=== PATIENT | male | born 1970 | race Caucasian/White ===

== ENCOUNTER 2017-05-11 04:27 | Emergency (ER) | payer OTHER ==
[~2017-05-11] VITALS: Ht 182.9 cm; Wt 90.7 kg
[2017-05-11] MEDS ORDERED: IPRATRPIUM/ALBUTEROL 0.5/2.5MG 3 ML NEBU. ONE (04:37)
[2017-05-11] MEDS ORDERED: PRED20TA PO (04:55)
[2017-05-11] MEDS ORDERED: ALBU1.25 NEB (04:55)
--- NOTE | 2017-05-11 04:58 | PHYS DOC ---
General Chief Complaint: MULTIPLE COMPLAINTS Stated Complaint: HIP PAIN ASTHMA ATTACK Time Seen by MD: 04:30 Source: patient Exam Limitations: no limitations Problems: History of Present Illness Initial Comments Patient is a 46-year-old male who comes to the ED complaining of asthma attack and hip pain. Patient states he moved here from [place] in September, states he has not established with a doctor since moving here. 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 Patient has a nebulizer machine at home, states when his symptoms are like this he can usually get a breathing treatment which will help. He has no medications at home therefore he has come here for evaluation. He denies fever chills sweats or body aches cough is productive with whitish sputum. Symptoms are consistent with prior asthma attacks. Patient still smokes cigarettes heavily. Patient also complains of left hip pain. While talking patient pushes on his left buttock and then cries out in pain. He denies any trauma or recent exacerbating activities. He says that he rolls over on his hip and it wakes him up at night. No numbness tingling weakness or radiating symptoms. No pre- arrival treatment. ED vital signs are stable Timing/Duration: other Severity: mild Modifying Factors: improves with medication, worse with movement, improves with rest Associated Symptoms: cough, shortness of breath, other Allergies: Coded Allergies: No Known Drug Allergies (Unverified , 05/11/17) Past Medical History Medical History: arthritis, asthma Surgical History: noncontributory Social History Smoker: cigarettes Alcohol: none Drugs: none Review of Systems Constitutional: denies chills, denies diaphoresis, denies fever Respiratory: see HPI Cardiovascular: denies chest pain, denies palpitations, denies syncope Gastrointestinal: denies diarrhea, denies nausea, denies vomiting Musculoskeletal: see HPI, denies back pain, joint pain, denies joint swelling, muscle pain, denies neck pain Psychiatric/Neurological: denies headache, denies numbness, denies paresthesia Hematologic/Lymphatic: denies blood clots, denies easy bleeding, denies easy bruising Physical Exam General Appearance: no apparent distress (disheveled, smells like smoke) Eyes: bilateral eye normal inspection, bilateral eye PERRL, bilateral eye EOMI Ear, Nose, Throat: hearing grossly normal, normal ENT inspection, normal pharynx Neck: non-tender, supple Respiratory: chest non-tender, decreased breath sounds (globally with fair to good air movement no respiratory distress) Cardiovascular: normal peripheral pulses, regular rate, rhythm Back: no CVA tenderness, no vertebral tenderness Extremities: normal range of motion, no pedal edema, no calf tenderness, pelvis stable, other (tenderness at the lateral left gluteus muscle) 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 I discussed [id number] medications smoking cessation establishment with PCP nebulizer treatments and prednisone. Prednisone should be effective in a heating patient's respiratory symptoms and chronic inflammatory left hip complaint. Signs and symptoms to monitor as well as urgent indications to return to the department discussed the patient's questions were answered to his satisfaction and he expressed agreement and understanding with the treatment plan Departure Time of Disposition: 04:56 Disposition: 01 HOME, SELF-CARE Diagnosis: COPD/asthma exacerbation, tobaccoism, chronic left Condition: GOOD Patient Instructions: Smoking Cessation, Tips For Success Additional Instructions: Stop smoking seek medical assistance if necessary. Drink plenty of fluids to avoid dehydration. [id number] Tylenol as needed. Heating pad to left hip 20 minutes 4-6 times daily followed by gentle stretching. Prescription: Prednisone, albuterol nebulizer You will need to establish with and follow with a local primary care doctor. ED staff can give you names of local doctors who take walk-in patients. Follow-up with a doctor on Wednesday for recheck. As discussed may consider physical therapy for further treatment of left buttock pain. Return to ED with new or changing symptoms. DANICA MCGUIRE DO May 11, 2017 04:58
[2017-05-11 05:07] VITALS: BP 137/91
[2017-05-11] MEDS ORDERED: IPRATRPIUM/ALBUTEROL 0.5/2.5MG 3 ML NEBU. NEB ONE (05:15)
[2017-05-11] MEDS ORDERED: ALBUTEROL 3ML X5 NEB STARTPACK. INH ONE (05:30)
[2017-05-11] MEDS ORDERED: predniSONE 20 MG TABLET PO ONE (05:30)
== END 2017-05-11 05:11 | disposition home or self-care (01) ==
LOC: ER 04:27 → EDSEX 04:27 → ER 05:11
DX: J45.901 Unspecified asthma with (acute) exacerbation (principal); G89.29 Other chronic pain; M25.552 Pain in left hip; F17.210 Nicotine dependence, cigarettes, uncomplicated
CPT/HCPCS: 94640; 99284; J7512; J7620

== ENCOUNTER → 2020-09-26 | Outpatient (CLI) | payer OTHER ==
[~2020-09-26] MED LIST: ALBU1.25 NEB; PRED20TA PO
--- NOTE | 2020-09-26 17:33 | RAD ---
XR EXAM OF ANKLE 3V History: Reason: ARTHRITIS / Spl. Instructions: / History: Technique: 3 views bilateral ankles Comparison: None. Findings: Left ankle: Normal alignment. Symmetric ankle mortise. Mild ankle degenerative changes. No fracture. Plantar calcaneal spur. Soft tissues unremarkable. Mild prominence of the anterior talus Right ankle: Normal alignment. Symmetric ankle mortise. No fracture. Soft tissues unremarkable. Plant ar calcaneal spur. Mild ankle DJD. Mild prominence of the anterior talus. Impression: 1. Mild bilateral ankle DJD, left greater than right. Electronically signed by: Jaspal Hoff DO (09/26/2020 5:30 PM) [id number]
== END ==
LOC: RAD 11:28
PROVIDERS: ATTEND Nurse Practitioner Family
DX: M19.072 Primary osteoarthritis, left ankle and foot (principal); M19.071 Primary osteoarthritis, right ankle and foot; M77.32 Calcaneal spur, left foot; M77.31 Calcaneal spur, right foot
CPT/HCPCS: 73610

== ENCOUNTER → 2021-02-07 | Outpatient (CLI) | payer OTHER ==
--- NOTE | 2021-02-07 11:02 | RAD ---
Double contrast barium esophagram. History:Reason: DYSPHAGIA ACID REFLUX 2.6 min of fluoro / Spl. Instructions: / History: Comparison studies: None. Technique: Esophagram was performed utilizing double contrast upright examination, single contrast pr one examination, and cine evaluation of cervical esophageal swallow function. Findings: Barium swallow was performed without difficulty. Esophageal peristalsis and motility were n ormal. No mucosal abnormalities. Small hiatal hernia. No esophageal diverticulum. Mildly prominent cr icopharyngeus muscle on initial sequence which relaxes on additional swallows. Prominent cervical syn desmophytes with mild indention on the posterior esophagus. Mild esophageal dysmotility with mild pro ximal escape and distal tertiary contractions. Fluoroscopic time: 2.6 minutes Fluoroscopic images: 40 IMPRESSION: 1. Small hiatal hernia. 2. Mild esophageal dysmotility. 3. Prominent cervical syndesmophytes contributing to indention of the posterior esophagus. No stenos is or obstruction. Electronically signed by: Jaspal Hoff DO (02/07/2021 11:00 AM) [id number]
== END ==
LOC: RAD 08:57
PROVIDERS: ATTEND Physician Assistant Medical
DX: K21.9 Gastro-esophageal reflux disease without esophagitis (principal); K44.9 Diaphragmatic hernia without obstruction or gangrene; R13.10 Dysphagia, unspecified
CPT/HCPCS: 74220

== ENCOUNTER → 2021-08-06 | Outpatient (CLI) | payer OTHER ==
--- NOTE | 2021-08-06 10:42 | RAD ---
EXAM: Abdomen sonogram. HISTORY: Elevated liver function laboratory values. TECHNIQUE: Sonographic imaging of the abdomen was performed. COMPARISON: None. FINDINGS: The liver is enlarged. There is hepatic steatosis. No focal hepatic lesion is seen. The gal lbladder is unremarkable. The common bile duct, pancreas and inferior vena cava are obscured. The rig ht kidney is not well seen. The right kidney appears to be normal in size and there is no hydronephro sis. IMPRESSION: 1. Hepatomegaly and hepatic steatosis. 2. Limited evaluation of the midline and right upper abdominal structures due to the degree of aforem entioned hepatic steatosis. Electronically signed by: Susana Espinosa MD (08/06/2021 10:40 AM) [id number]
== END ==
LOC: US 10:01
PROVIDERS: ATTEND Nurse Practitioner Primary Care
DX: R16.0 Hepatomegaly, not elsewhere classified (principal); K76.0 Fatty (change of) liver, not elsewhere classified
CPT/HCPCS: 76705

== ENCOUNTER 2021-09-23 08:00 | Outpatient (CLI) | payer OTHER ==
--- NOTE | 2021-09-25 11:43 | RAD ---
XR LT WRIST 3VIEWS DATE: 09/23/2021 2:59 PM INDICATION: WRIST AND KNEE PAIN, CARPEL TUNNEL COMPARISON: None. FINDINGS: Bones: There is no evidence of acute fracture or dislocation. Joints: The joint spaces are normal. Miscellaneous: None. IMPRESSION: Normal exam Electronically signed by: John Livingston MD (09/24/2021 10:10 AM) [id number]
--- NOTE | 2021-09-25 11:43 | RAD ---
3 views the bilateral knees without comparison for wrist and knee pain, carpal tunnel syndrome. FINDINGS: No fracture, dislocation, or acute osseous abnormality of either knee. No suprapatellar luiz nt effusions. Early degenerative changes of the medial compartment of the right knee. No other signif icant degenerative changes. Some vascular calcifications are seen bilaterally. IMPRESSION: 1. No acute osseous abnormalities. Electronically signed by: Lonnie Napier MD (09/24/2021 10:35 AM) [id number]
== END 2021-09-23 23:00 | disposition home or self-care (01) ==
LOC: RAD 08:00 → EDSTATUS 10-01 11:05
PROVIDERS: ATTEND Nurse Practitioner Primary Care
DX: M17.11 Unilateral primary osteoarthritis, right knee (principal); M25.861 Other specified joint disorders, right knee; M25.862 Other specified joint disorders, left knee; M25.562 Pain in left knee
CPT/HCPCS: 73110; 73562-50